=== PATIENT | female | born 1980 | race Caucasian/White ===

== ENCOUNTER 2017-04-14 09:20 | Emergency (ER) | payer BC ==
[2017-04-14 10:37] VITALS: BP 124/84
--- NOTE | 2017-04-14 10:44 | UC ---
Lower Extremity/Ankle HPI - HPI Summary HPI Summary: pt presents with c/o gradual onset of right foot pain, with feeling of tender "marble in the ball of my foot" X 1 week. Pt reports that she has begun to excercise more vigorously in the last month and denies any injury. - History of Current Complaint Chief Complaint: UCLowerExtremity Stated Complaint: RIGHT FOOT PAIN Time Seen by Provider: 04/14/17 10:05 Hx Obtained From: Patient Hx Last Menstrual Period: ~03/24/17 ?: No Onset/Duration: Gradual Onset, Lasting Weeks - 4 Severity Initially: Mild Severity Currently: Moderate - with ambualtion or weight bearing Aggravating Factor(s): Standing, Ambulation Alleviating Factor(s): Rest, Elevation Able to Bear Weight: Yes - Risk Factors Gout Risk Factors: Negative - Allergies/Home Medications Allergies/Adverse Reactions: Allergies Allergy/AdvReac Type Severity Reaction Status Date / Time Penicillins Allergy Unknown Verified 04/14/17 10:05 Reaction Details Home Medications: Home Medications Ibuprofen TAB* [Advil TAB*] 1,200 mg PO Q12H PRN 04/14/17 [History Confirmed 09/19] Rizatriptan ODT (NF) [Maxalt-SUCCESS COACH (NF)] 10 mg PO SEE INSTRUCTIONS PRN 04/14/17 [ History Confirmed 04/14/17] PMH/Surg Hx/FS Hx/Imm Hx Previously Healthy: Yes - Surgical History Surgical History: Yes Surgery Procedure, Year, and Place: Tubal Ligation, 2002, [place] - Family History Known Family History: Positive: Other - positive [facility] for myalgia - Social History Alcohol Use: Occasionally Substance Use Type: None Smoking Status (MU): Never Smoked Tobacco Review of Systems Constitutional: Negative Skin: Negative Eyes: Negative ENT: Negative Respiratory: Negative Cardiovascular: Negative Gastrointestinal: Negative Genitourinary: Negative Motor: Negative Neurovascular: Negative Musculoskeletal: Myalgia - right plantar aspect, "ball of foot" Neurological: Negative Psychological: Negative All Other Systems Reviewed And Are Negative: Yes Physical Exam Triage Information Reviewed: Yes Appearance: Well-Appearing Vital Signs: Initial Vital Signs Temp 98.7 F 04/14/17 10:02 Pulse 76 04/14/17 10:02 Resp 16 04/14/17 10:02 BP 124/84 04/14/17 10:02 Pulse Ox 99 07/12/17 10:02 Eye Exam: Normal Respiratory Exam: Normal Musculoskeletal Exam: Other - tenderness, right distal metatarsal between 3&4 with palpation Neurological Exam: Normal Psychological Exam: Normal Skin Exam: Normal Lower Extremity Course/Dx - Differential Dx/Diagnosis Differential Diagnosis/HQI/PQRI: Fracture (Closed), Gout, Other - louis neuroma Provider Diagnoses: louis neuroma Discharge - Discharge Plan Condition: Stable Disposition: HOME Patient Education Materials: Louis Neuroma (ED) Referrals: [facility] REFERRAL [Outside] Dony Hanks [Medical Doctor] - Additional Instructions: If you do not have an improvement in your symptoms, then we have provided the referral to a provider to help further evaluate your current complaint.
== END 2017-04-14 10:39 | disposition home or self-care (01) ==
LOC: UCCORT 09:20
DX: G57.61 Lesion of plantar nerve, right lower limb (principal)
CPT/HCPCS: 99201; G0463

== ENCOUNTER 2017-09-09 17:02 | Emergency (ER) | payer BC ==
[2017-09-09 17:15] VITALS: BP 132/87
--- NOTE | 2017-09-09 17:56 | RAD ---
Indication: Right foot pain. 3 views of the right foot demonstrates healing fractures of the midshaft of the fourth and fifth proximal phalanges. Metatarsals are intact. IMPRESSION: There appears to be healing fractures of the midshaft of the proximal phalanges of the third and fourth digits.
--- NOTE | 2017-09-09 18:16 | UC ---
Lower Extremity/Ankle HPI - HPI Summary HPI Summary: FOR TWO MONTHS FOLLOWING A FITNESS CHALLENGE HAS HAD WORSENING RIGHT (LATERAL) FOOT PAIN. NO SWELLING NO REDNESS. HURTS WITH WEIGHT BEARING. NO PREVIOUS KNOWN INJURY. - History of Current Complaint Chief Complaint: UCLowerExtremity Stated Complaint: FOOT PAIN Time Seen by Provider: 09/09/17 17:21 Hx Obtained From: Patient Hx Last Menstrual Period: 08/19/17 Onset/Duration: Gradual Onset, Lasting Weeks, Still Present Severity Initially: Mild Severity Currently: Moderate Aggravating Factor(s): Standing, Ambulation Alleviating Factor(s): Rest, Elevation Able to Bear Weight: Yes - WITH PROGRESSIVE PAIN - Risk Factors Gout Risk Factors: Negative DVT Risk Factors: Negative Septic Arthritis Risk Factor: Negative - Allergies/Home Medications Allergies/Adverse Reactions: Allergies Allergy/AdvReac Type Severity Reaction Status Date / Time Penicillins Allergy Unknown Verified 09/09/17 17:06 Reaction Details PMH/Surg Hx/FS Hx/Imm Hx Previously Healthy: Yes - Surgical History Surgical History: Yes Surgery Procedure, Year, and Place: Tubal Ligation, 2002, [place] - Family History Known Family History: Positive: Other - positive [facility] for myalgia - Social History Occupation: Employed Full-time Lives: With Family Alcohol Use: None Substance Use Type: None Smoking Status (MU): Never Smoked Tobacco Review of Systems Constitutional: Negative Skin: Negative Eyes: Negative ENT: Negative Respiratory: Negative Cardiovascular: Negative Gastrointestinal: Negative Genitourinary: Negative Motor: Negative Neurovascular: Negative Musculoskeletal: Arthralgia, Myalgia Neurological: Negative Psychological: Negative Is Patient Immunocompromised?: No All Other Systems Reviewed And Are Negative: Yes Physical Exam Triage Information Reviewed: Yes Appearance: Well-Appearing, No Pain Distress, Well-Nourished Vital Signs: Initial Vital Signs Temp 98.8 F 09/09/17 17:08 Pulse 76 09/09/17 17:08 Resp 18 09/09/17 17:08 BP 132/87 09/09/17 17:08 Pulse Ox 100 09/09/17 17:08 Vital Signs Reviewed: Yes Eye Exam: Normal ENT Exam: Normal ENT: Positive: Normal ENT inspection Dental Exam: Normal Neck exam: Normal Neck: Positive: Supple, Nontender Respiratory Exam: Normal Respiratory: Positive: Chest non-tender, Lungs clear, Normal breath sounds, No respiratory distress Cardiovascular Exam: Normal Cardiovascular: Positive: RRR, No Murmur, Pulses Normal Abdominal Exam: Normal Musculoskeletal Exam: Normal Musculoskeletal: Positive: Strength Intact, ROM Intact, No Edema, Other: - LATERAL RIGHT FOOT TENDERNESS AT PROXIMAL 4TH AND 5TH METATARSALS Neurological Exam: Normal Psychological Exam: Normal Skin Exam: Normal Diagnostics - Radiology No standard instances Xray Interpretation: Positive (See Comments) - Interpreted by radiologist, reviewed by MIKE. Interpretation :HEALING FRACTURES OF THE MIDSHAFT OF PROXIMAL PHALANGES OF 3RD AND 4TH DIGITS Lower Extremity Course/Dx - Differential Dx/Diagnosis Differential Diagnosis/HQI/PQRI: Fracture (Closed), Sprain, Strain, Tendonitis, Other - EXTENSOR COMPARTMENT TENDONITIS OF THE FOOT Provider Diagnoses: RIGHT FOOT SPRAIN; OLD HEALING FRACTURES OF PROXIMAL 3RD AND 4TH PHALANGES OF RIGHT FOOT. Discharge - Discharge Plan Condition: Stable Disposition: HOME Patient Education Materials: Foot Sprain (ED), Arthralgia (ED) Referrals: Amanda FORD,Syed Garcia [Primary Care Provider] - Vesta Sheppard MD [Medical Doctor] -
== END 2017-09-09 18:31 | disposition home or self-care (01) ==
LOC: UCEAST 17:02
DX: S93.601A Unspecified sprain of right foot, initial encounter (principal); S92.514A Nondisplaced fracture of proximal phalanx of right lesser toe(s), initial encounter for closed fracture; X58.XXXA Exposure to other specified factors, initial encounter; Y93.A9 Activity, other involving cardiorespiratory exercise; Y92.9 Unspecified place or not applicable; Z88.0 Allergy status to penicillin
CPT/HCPCS: 99202; G0463

== ENCOUNTER 2017-11-11 07:43 | Day surgery (SDC) | payer BC ==
[~2017-11-11 07:43] MED LIST: Buffered Lidocaine 0.9% SYRIN* 5 ML/SYR SYRINGE INTRADERM ONE; DiMENhydriNATE IV* 50 MG/ML VIAL IV PUSH PRN; Famotidine IV* 10 MG/ML 2 ML (20 mg) IV ONE; Morphine INJ* 2 MG/ML 1 ML CARPUJECT IV PRN; Naloxone* 0.4 MG/ML 1 ML VIAL IV PRN; PROCHLORPERAZINE INJ 5 MG/ML 2 ML VIAL IV PRN
[2017-11-11] MEDS ORDERED: Buffered Lidocaine 0.9% SYRIN* 5 ML/SYR SYRINGE ONE (07:54)
[2017-11-11] MEDS ORDERED: Famotidine IV* 10 MG/ML 2 ML (20 mg) ONE (07:54)
[2017-11-11] MEDS ORDERED: Clindamycin 900 MG IVPREMIX(* 900 MG/50 ML SDV IV ONE (07:54)
[2017-11-11] MEDS ORDERED: Midazolam* 1 MG/ML 10 ML VIAL (10 MG) ONE (08:20)
[2017-11-11] MEDS ORDERED: KETAMINE HCL* 50 MG/ML 10 ML VIAL ONE (08:20)
[2017-11-11] MEDS ORDERED: fentaNYL* 50 MCG/ML 2 ML VIAL (100 MCG VIAL) ONE ×2 (08:20→11:32)
[2017-11-11] MEDS ORDERED: Ondansetron INJ* 2 MG/ML VIAL ONE (09:59)
[2017-11-11] MEDS ORDERED: Propofol* 10 MG/ML 20 ML BTL IV PUSH ONE (09:59)
[2017-11-11] MEDS ORDERED: Lidocaine 2% PF * 5 ML VIAL ONE (09:59)
[2017-11-11] MEDS ORDERED: Ketorolac INJ* 30 MG/ML 1 ML VIAL ONE (09:59)
[2017-11-11] MEDS ORDERED: Dexamethasone IV* 4 MG/ML 1 ML (4 MG) ONE (09:59)
[2017-11-11] MEDS ORDERED: Bupivacaine 0.5% SDV PF* 10-30ML VIAL ONE (10:37)
--- NOTE | 2017-11-11 11:25 | OP ---
Operative Report - Blank - Operative Report Date of Operation: 11/11/17 Note: PATIENT: Gloria Cordero DATE OF : 1980 DATE OF SURGERY: 11/11/2017 SURGEON: Josef Godoy MD STRAIGHTENING PRESS OPERATOR HELPER: FLORA Moon, whos assistance was necessary for positioning, retraction, help with instrumentation, and closure. ANESTHESIOLOGIST: Marques Burdick MD PREOPERATIVE DIAGNOSIS: Right peroneal tenosynovitis and instability POSTOPERATIVE DIAGNOSIS: Right peroneal tenosynovitis and instability OPERATION: 1. Right peroneal tendon exploration with synovectomy of peroneal tendon sheath. 2. Right peroneal tendon stabilization procedure with fibular groove deepening osteotomy. ANESTHESIA: GETA IMPLANTS: none TOURNIQUET TIME: Less than 45 minutes with a well padded thigh tourniquet at 250mmHg SPECIMENS: none ESTIMATED BLOOD LOSS: minimal COMPLICATIONS: none STATUS: Stable from the operating room to the recovery room and then home. INDICATIONS FOR PROCEDURE: Gloria has had longstanding pain and instability of her right peroneal tendons. Both operative and non operative treatment alternatives were reviewed. Further, the nature and risks of surgery were reviewed in careful detail, in the office as well as the pre-operative holding area. Our discussions regarding the risks of surgery included, but were not limited to, infection, wound problems, nerve injury, neuroma, RSD, persistent symptoms, blood clot, failure of the surgery, recurrent instability and even the remote chance of catastrophic complication, including loss of limb. DESCRIPTION OF PROCEDURE: The patient was seen in the preoperative holding unit and informed written consent was obtained. The appropriate extremity was marked. The patient was then brought to the operating room and carefully positioned on the operating room table. Anesthesia was induced. All bony prominences were padded with great care. A chlorhexidine based pre-scrub was performed followed by a chloraprep prep and drape in standard sterile fashion. A surgical safety pause was then conducted in which we confirmed the appropriate patient, extremity, planned procedure, availability of equipment, indication and administration of prophylactic antibiotics, and DVT prophylaxis in the form of a compression boot on the non-surgical extremity. An Esmarch exsanguination of the limb was then performed and the tourniquet inflated. I utilized an incision overlying the peroneal tendons laterally. I carried the dissection down through the soft tissue to the level of the periosteum and superior peroneal retinaculum (SPR) with care taken to protect the sural nerve, which was not visualized during the procedure. I carefully incised the SPR off of the posterior fibula to expose the peroneal tendons. Dissection of the tendons was carried distally. The tendons were explored at this time for any tears. No discrete tears were appreciated but there was a large amount of inflamed tenosynovium within the tendon sheath. An extensive synovectomy was performed. Additionally, there was a low-lying peroneus brevis muscle belly which was debrided and excised. At this point, I carefully inspected the peroneal groove at the posterior aspect of the fibula. This was an abnormally shallow groove and I therefore elected to perform a groove deepening osteotomy procedure. I utilized a small sagittal saw to create a longitudinal osteotomy in the fibula at the margin of the insertion of the SPR. I then utilized a bone tamp and a mallet to impact this area, deepening the groove. I took care to ensure that there were no sharp bony prominences in this area. At this point I carefully planned out the repair of the superior peroneal retinaculum. I then reduced the tendons and they sat nicely in the deepened retro-fibular groove. The wound was copiously irrigated. I repaired the SPR utilizing #1 Vicryl suture in a transosseous horizontal mattress suture pattern. I utilized multiple sutures for this repair, appropriately tensioning the SPR. I was able to pass a [place] under the repaired SPR without difficulty after the repair. We then irrigated the wound copiously again. The wound was closed in a layered fashion utilizing 3-0 Monocryl and 3-0 nylon. A sterile dressing was then applied and the ankle was splinted in a neutral position. All needle and sponge counts were correct at the end of the case. The patient was awakened from anesthesia and transferred to the recovery room in stable condition. There were no complications. ATTESTATION: I attest I was present and scrubbed and performed the critical portions of the procedure myself. POST-OPERATIVE PLAN: The patient will remain [id number] for an anticipated duration of 6 weeks. Follow up will be in 2 weeks for likely suture removal and transition into a short leg cast.
[2017-11-11] MEDS: fentaNYL* 50 MCG/ML 2 ML VIAL (100 MCG VIAL) IV PRN ×3 (11:34→12:05)
[2017-11-11] MEDS ORDERED: oxyCODONE/Acetamin 5/325 MG* TAB ONE ×2 (11:37→12:14)
[2017-11-11] MEDS: oxyCODONE/Acetamin 5/325 MG* TAB PO PRN ×2 (11:39→12:16)
[2017-11-11] MEDS ORDERED: DiMENhydriNATE IV* 50 MG/ML VIAL ONE (12:34)
[2017-11-11 12:46] VITALS: BP 126/86
== END 2017-11-11 13:04 | disposition home or self-care (01) ==
LOC: OR 07:43
PROVIDERS: ATTEND Orthopaedic Surgery
DX: M76.71 Peroneal tendinitis, right leg (principal); M25.371 Other instability, right ankle
CPT/HCPCS: 81025; A9270-GY; C1776; J1100; J1240; J1885; J2250; J2405; J2704; J3010

== ENCOUNTER 2017-11-15 16:24 | Emergency (ER) | payer BC ==
--- OUTSIDE RECORDS SUMMARY | 2017-11-15 16:43 | XMS REPORT ---
:1980 External Reference #:[id number] Author [facility] [employer] Address [address] [address] Phone [phone] Care Team Providers Name Role Phone Syed Patel PA Primary Care Physician Unavailable Payers Type Date Identification Numbers Payment Provider Subscriber Commercial Policy Number: [id number] [employer] Gloria Cordero PayID: [id number] [address] [address] [place] [address] Problems Date Description Provider Status Onset: 09/13/2017 Stress fracture of metatarsal bone Josef Godoy MD Active Onset: 09/13/2017 Closed fracture of phalanx of foot Josef Godoy MD Active Onset: 10/11/2017 Strain of peroneal tendon Josef Godoy MD Active Social History Type Date Description Comments Smoking Patient has never smoked Allergies, Adverse Reactions, Alerts Date Description Reaction Status Severity Comments 09/13/2017 Penicillin active Medications Medication Date Status Form Strength Qnty SIG Indications Ordering Provider Knee Scooter 10/26/19 Active 1units Josef 18 MD Walt Rizatriptan Active Tablets 10mg prn Unknown Benzoate 00 No Injection Active Injection Josef 00 MD Walt Vital Signs Date Vital Result Comment 10/26/2017 Height 63 inches 5'3" Weight 165.00 lb BP Systolic 122 mmHg BP Diastolic 64 mmHg Respiratory Rate 16 /min Body Temperature 97.3 F Pain Level 6 BMI (Body Mass Index) 29.2 kg/m2 10/11/2017 Height 63 inches 5'3" Weight 165.00 lb Heart Rate 74 /min Respiratory Rate 16 /min Pain Level 7 BMI (Body Mass Index) 29.2 kg/m2 09/13/2017 Height 63 inches 5'3" Weight 165.00 lb Respiratory Rate 12 /min Body Temperature 97.9 F Pain Level 7 BMI (Body Mass Index) 29.2 kg/m2 Results Description No Information Procedures Description No Information Encounters Type Date Location Provider CPT E/M Dx Office Visit 10/11/2017 [place] [id number] S86.311D 2:45p [facility] S93.491D Office Visit 09/13/2017 3:00p [place] [address] M84.374A [facility] S92.514D Plan of Care 10/11/2017 - Josef Godoy [id number] Strain musc/tend peroneal grp at low leg lev, r leg, subsFollow up:Follow Up: after testing / imaging is [id number] Sprain of other ligament of right ankle, subs encntr
[2017-11-15 16:49] VITALS: BP 127/88
--- NOTE | 2017-11-15 17:50 | UC ---
Karen Bergeron Gabriel, scribed for Juvencio Grider MD on 11/15/17 at 1647 . Cardiac HPI - HPI Summary HPI Summary: This patient is a 37 year old F presenting to [place] accompanied by her family with a chief complaint of CP since 10-11-17 after her surgery. The patient rates the intermittent pain 8/10 in severity and located mid sternal. Patient reports pain on inspiration, trouble sleeping, waves of diaphoresis, and chills. Patient denies nausea and SOB. Patient had surgery in [place] to "scrap her bone and make room for her tendon." Pt takes ASA, ibuprofen, oxycodone, and Tylenol daily for pain. FHx of blood clots - History of Current Complaint Stated Complaint: CHEST PAIN Time Seen by Provider: 11/15/17 16:31 Hx Last Menstrual Period: 08/19/17 Onset/Duration: Lasting Days, Still Present Timing: Intermittent Episodes Lasting: Initial Severity: Severe Current Severity: Moderate Pain Intensity: 8 Chest Pain Location: Mid Sternal Associated Signs & Symptoms: Positive: Chest Pain, Diaphoresis. Negative: Nausea/Vomiting - Allergy/Home Medications Allergies/Adverse Reactions: Allergies Allergy/AdvReac Type Severity Reaction Status Date / Time Penicillins Allergy Unknown Verified 11/11/17 07:57 Reaction Details PMH/Surg Hx/FS Hx/Imm Hx Neurological History: Migraine Other History Of: Negative For: HIV, Hepatitis B - Surgical History Surgical History: Yes Surgery Procedure, Year, and Place: Tubal Ligation, 2002, [place]. FX'D NOSE - Family History Known Family History: Positive: Blood Disorder - blood clots, Other - positive [facility] for myalgia - Social History Alcohol Use: Rare Alcohol Amount: 1 X MONTH Substance Use Type: None Smoking Status (MU): Never Smoked Tobacco Review of Systems Constitutional: Chills, Other - waves of diaphoresis Cardiovascular: Chest Pain All Other Systems Reviewed And Are Negative: Yes Physical Exam Triage Information Reviewed: Yes Vital Signs: Initial Vital Signs Temp 98.7 F 11/15/17 16:36 Pulse 77 11/15/17 16:36 Resp 16 11/15/17 16:36 BP 127/88 11/15/17 16:36 Pulse Ox 99 11/15/17 16:36 Vital Signs Reviewed: Yes - Additional Comments General: well-appearing, mild pain distress Skin: warm, color reflects adequate perfusion, dry Head: normal Eyes: EOMI, ALEX ENT: normal Neck: supple, nontender Respiratory: CTA, breath sounds present Cardiovascular: RRR Abdomen: soft, nontender, Chest is non tender to palpation Bowel: present Musculoskeletal: normal, strength/ROM intact, RLE in cast, good capillary refill Neurological: normal, sensory/motor intact, A&O x3 Psychological: affect/mood appropriate Diagnostics - EKG Cardiac Rate: NL - Taken at 1632 Cardiac Rhythm: Sinus: Normal - at 76 BPM Ectopy: None ST Segment: Normal - Assessment/Plan Course Of Treatment: Medications reviewed. BP noted and advised to follow up with PCP. DISCUSSED DDX OF CHEST PAIN THE PATIENT AND HER SISTER WHICH INCLUDES PE. RECOMMENDED GOING TO THE ED FOR FURTHER EVALUATION. DISCUSSED GOING BY AMBULANCE. PATIENT DECLINED THE AMBULANCE, WILL GO BY POV. VSS IN CLINIC. SPOKE WITH CHARGE NURSE IN ED. - Clinical Impression Provider Diagnoses: CHEST PAIN. Elevated blood pressure without history of hypertension. Discharge - Discharge Plan Condition: Stable Disposition: HOME Patient Education Materials: Chest Pain (ED) Referrals: Amanda FORD,Syed Garcia [Primary Care Provider] - Additional Instructions: GO DIRECTLY TO THE EMERGENCY DEPARTMENT FOR FURTHER EVALUATION OF YOUR CHEST PAIN. Your blood pressure was elevated during todays visit; please follow up with your primary care provider within a week for further evaluation. The documentation as recorded by the Karen crespo Gabriel accurately reflects the service I personally performed and the decisions made by me, Juvencio Grider MD.
== END 2017-11-15 16:57 | disposition home or self-care (01) ==
LOC: UCEAST 16:24
DX: R07.89 Other chest pain (principal); R61 Generalized hyperhidrosis; R03.0 Elevated blood-pressure reading, without diagnosis of hypertension; G43.909 Migraine, unspecified, not intractable, without status migrainosus; Z88.0 Allergy status to penicillin
CPT/HCPCS: 93005; 99212; G0463

== ENCOUNTER 2017-11-15 17:20 | Emergency (ER) | payer BC ==
[2017-11-15] MEDS ORDERED: Morphine INJ* 4 MG/ML 1 ML CARPUJECT IV ONE (18:13)
[2017-11-15] MEDS ORDERED: Ondansetron INJ* 2 MG/ML VIAL IV ONE (18:13)
[2017-11-15 18:28] LABS: ABS Basophils 0.1 10^3/ul (0-0.2); ABS Eosinophils 0.1 10^3/ul (0-0.6); ABS Monocytes 0.7 10^3/ul (0-0.8); ABS Neutrophils 7.3 10^3/ul (1.5-7.7); ABS Nucleated RBC 0 10^3/ul; Eosinophil % 0.8 % (0-6); Hematocrit 41 % (35-47); Hemoglobin 14.1 g/dl (12.0-16.0); Lymphocyte % 19.7 % (25-47); Mean Corpuscular HGB Conc 35 g/dl (31-36); Mean Corpuscular Hemoglobin 31 pg (27-31); Mean Corpuscular Volume 89 fL (80-97); Mean Platelet Volume 8 um3 (7.4-10.4); Nucleated Red Blood Cells % 0; Platelet Count 280 10^3/ul (150-450); Red Blood Count 4.58 10^6/ul (4.0-5.4); Red Cell Distribution Width 13 % (10.5-15); White Blood Count 10.2 10^3/ul (3.5-10.8)
--- NOTE | 2017-11-15 18:28 | ED ---
HPI Chest Pain - HPI Summary HPI Summary: Patient is an otherwise healthy 37-year-old female who presents to the ED with midsternal chest pain which does not radiate, rated an 8 out of 10 and is intermittent. Recent surgery on her right lower extremity on , and she complains of chest pain with mild shortness of breath since that time. She denies any cardiac history, but endorses strong family history. Grandfather from [place] and father had multiple blood clots. She has never had a blood clot personally. Pain is not worse with exertion or better with rest. Pain is slightly worse with inspiration and expiration. Denies OCP use, smoking, known malignancy, calf pain. She denies nausea, vomiting, diarrhea, constipation. Denies headache. She was seen at urgent care with a normal EKG, but was still sent here to rule out blood clot. Denies history of shortness of breath including history of COPD or asthma. She does not feel like her heart is beating fast, is not diaphoretic, and denies any recent upper respiratory infection. - History of Current Complaint Chief Complaint: EDChestWallPain Time Seen by Provider: 11/15/17 17:50 Hx Obtained From: Patient Hx Last Menstrual Period: 08/19/17 Onset/Duration: Started Hours Ago Timing: Constant Initial Severity: Moderate Current Severity: Moderate Pain Intensity: 7 Pain Scale Used: 0-10 Numeric Chest Pain Location: Mid Sternal Chest Pain Radiates: No Character: Dull/Aching Aggravating Factor(s): Nothing Alleviating Factor(s): Nothing Associated Signs and Symptoms: Positive: Other: - Allergy/Home Medications Allergies/Adverse Reactions: Allergies Allergy/AdvReac Type Severity Reaction Status Date / Time Penicillins Allergy Unknown Verified 11/11/17 07:57 Reaction Details PMH/Surg Hx/FS Hx/Imm Hx Previously Healthy: Yes Endocrine/Hematology History: Denies: Hx Diabetes Cardiovascular History: Denies: Hx Hypertension, Hx Pacemaker/ICD History: Denies: Hx Renal Disease Musculoskeletal History: Reports: Hx Tendonitis - RIGHT KNEE, Other Musculoskeletal History - RIGHT ANKLE TENDON INJURY 07/20 Sensory History: Reports: Hx Contacts or Glasses - CONTACTS WILL WEAR GLASSES DOS Denies: Hx Hearing Aid Opthamlomology History: Reports: Hx Contacts or Glasses - CONTACTS WILL WEAR GLASSES DOS Neurological History: Reports: Hx Headaches, Hx Migraine - last episode on 11/03 usually has 4-5 attackes month Psychiatric History: Denies: Hx Panic Disorder - Surgical History Surgery Procedure, Year, and Place: Tubal Ligation, 2002, [place]. FX'D NOSE Hx Anesthesia Reactions: No - Immunization History Hx Pertussis Vaccination: No Immunizations Up to Date: Unable to Obtain/Confirm Infectious Disease History: No Infectious Disease History: Denies: Traveled Outside the [place] in Last 30 Days - Family History Known Family History: Positive: Other - positive [facility] for myalgia - Social History Occupation: Employed Full-time Alcohol Use: Rare Alcohol Amount: 1 X MONTH Hx Substance Use: No Substance Use Type: Reports: None, Prescribed Smoking Status (MU): Never Smoked Tobacco Review of Systems Constitutional: Negative Negative: Fever, Chills, Fatigue ENT: Negative Positive: Chest Pain Positive: Shortness Of Breath Gastrointestinal: Negative Positive: no symptoms reported, see HPI Musculoskeletal: Negative Skin: Negative All Other Systems Reviewed And Are Negative: Yes Physical Exam Triage Information Reviewed: Yes Vital Signs On Initial Exam: Initial Vitals Temp Pulse Resp BP Pulse Ox 97.7 F 89 16 139/99 97 11/15/17 17:23 11/15/17 17:23 11/15/17 17:23 11/15/17 17:23 11/15/17 17:23 Vital Signs Reviewed: Yes Appearance: Positive: Well-Appearing, Well-Nourished Skin: Positive: Warm, Skin Color Reflects Adequate Perfusion Head/Face: Positive: Normal Head/Face Inspection Eyes: Positive: EOMI, ALEX, Conjunctiva Clear Neck: Positive: Supple, No Lymphadenopathy Respiratory/Lung Sounds: Positive: Clear to Auscultation, Breath Sounds Present Cardiovascular: Positive: RRR, Pulses are Symmetrical in both Upper and Lower Extremities Musculoskeletal: Positive: Normal, Strength/ROM Intact Neurological: Positive: Sensory/Motor Intact, Alert, Oriented to Person Place, Time, Speech Normal Psychiatric: Positive: Normal, Affect/Mood Appropriate AVPU Assessment: Alert Diagnostics - Vital Signs Vital Signs Temp Pulse Resp BP Pulse Ox 11/15/17 17:53 128/98 11/15/17 17:23 97.7 F 89 16 139/99 97 - Laboratory Lab Statement: Any lab studies that have been ordered have been reviewed, and results considered in the medical decision making process. Chest Pain Course/Dx - Course Course Of Treatment: During the course of treatment, the patient is evaluated for mid sternal chest pain. Due to her recent surgery, CTA is ordered. Labs obtained. On arrival, she endorses an 8 out of 10 pain is is given Zofran and morphine for relief. Discharge - Discharge Plan Referrals: Amanda FORD,Syed Garcia [Primary Care Provider] -
[2017-11-15] MEDS ORDERED: Morphine INJ* 4 MG/ML 1 ML SYRINGE (NEW SYRINGE VERSION) ONE (18:30)
[2017-11-15] MEDS ORDERED: NS 0.9% 1000 ML* 1,000 ML IV ONE (18:31)
[2017-11-15 18:57] LABS: EGFR Non-African American 80.3 (>60)
[2017-11-15] MEDS ORDERED: Iohexol 350* (CONTRAST) 500 ML MDV IV ONE (19:54)
[2017-11-15 20:54] LABS: INR 0.94 (0.77-1.02)
--- NOTE | 2017-11-15 21:09 | RAD ---
INDICATION: Midsternal chest pain radiating to the left shoulder. COMPARISON: None TECHNIQUE: Axial source images were acquired following the administration of 67 mL Omnipaque [address] angiographic technique. Coronal and sagittal reconstructed images were constructed and reviewed. FINDINGS: There there are no filling defects in the pulmonary arteries to indicate acute pulmonary embolic disease. There are no focal infiltrates or effusions. There are no pulmonary parenchymal masses. The heart is normal in size. There is no evidence of pericardial effusion. There is no evidence of aortic aneurysm or dissection. The right lobe of the thyroid there is an 8 mm hypoattenuating focus that isn't completely characterized on this type of CT examination. At the right hilum there is a mildly enlarged lymph node measuring 1.3 cm x 1.3 cm (axial image 82). The visualized osseous structures appear normal. Limited views of the upper abdomen show no abnormalities. IMPRESSION: 1. No CT of evidence of pulmonary embolism. 2. At the right hilum there is a mildly enlarged lymph node measuring 1.3 x 1.3 cm in the axial plane of indeterminate clinical significance.
[2017-11-15] MEDS ORDERED: Ketorolac INJ* 30 MG/ML 1 ML VIAL IV PUSH ONE (21:15)
[2017-11-15] MEDS ORDERED: Methocarbamol TAB* 500 MG PO ONE (22:01)
--- NOTE | 2017-11-15 22:06 | PN ---
Progress Note - Progress Note Date of Service: 11/15/17 Note: patient was a sign out from [facility] pending CTA results. CTA: 1. No CT of evidence of pulmonary embolism. 2. At the right hilum there is a mildly enlarged lymph node measuring 1.3 x 1.3 cm in the axial plane of indeterminate clinical significance. labs, EKG and troponin otherwise unremarkable. Appears to be suffering from possible muscle strain spasm. Diagnosis: chest wall pain, muscle strain/spasm condition: stable discharge: home
[2017-11-15 22:43] VITALS: BP 130/86
== END 2017-11-15 22:43 | disposition home or self-care (01) ==
LOC: ED 17:20
DX: R07.9 Chest pain, unspecified (principal); R06.02 Shortness of breath
CPT/HCPCS: 36415; 71275; 80053; 82553; 83605; 83735; 84484; 84702; 85025; 85610; 85730; 93005; 96374; 96375; 99283; A9270-GY; J1885; J2270; J2405; Q9967

== ENCOUNTER 2019-02-05 12:52 | Emergency (ER) | payer BC ==
--- NOTE | 2019-02-05 14:05 | ED ---
Throat Pain/Nasal Congestion - HPI Summary HPI Summary: Pt. is a 38 y.o female who presents to the ER for redness and drainage from her left eye that started yesterday. Pt. notes she wears contacts and when she took her contacts out yesterday she noticed swelling to left cornea laterally. Pt. notes this morning she has dried drainage on her left eyelids. Denies eye pain, fever, sore throat, sinus congestion. No past medical hx. Sxs are mild in severity. No current modifying factors. - History of Current Complaint Chief Complaint: EDEyeProblem Time Seen by Provider: 02/05/19 14:01 Hx Obtained From: Patient - Allergies/Home Medications Allergies/Adverse Reactions: Allergies Allergy/AdvReac Type Severity Reaction Status Date / Time Penicillins Allergy Unknown Verified 02/05/19 12:55 Reaction Details PMH/Surg Hx/FS Hx/Imm Hx Previously Healthy: Yes Endocrine/Hematology History: Denies: Hx Diabetes Cardiovascular History: Denies: Hx Hypertension, Hx Pacemaker/ICD History: Denies: Hx Renal Disease Musculoskeletal History: Reports: Hx Tendonitis - RIGHT KNEE, Other Musculoskeletal History - RIGHT ANKLE TENDON INJURY 07/20 Sensory History: Reports: Hx Contacts or Glasses - CONTACTS WILL WEAR GLASSES DOS Denies: Hx Hearing Aid Opthamlomology History: Reports: Hx Contacts or Glasses - CONTACTS WILL WEAR GLASSES DOS Neurological History: Reports: Hx Headaches, Hx Migraine - last episode on 11/03 usually has 4-5 attackes month Psychiatric History: Denies: Hx Panic Disorder - Surgical History Surgery Procedure, Year, and Place: Tubal Ligation, 2002, [place]. FX'D NOSE. RIGHT FOOT 11/2017. C SECTION Hx Anesthesia Reactions: No Infectious Disease History: No Infectious Disease History: Denies: Traveled Outside the [place] in Last 30 Days - Family History Known Family History: Positive: Other - positive FM for myalgia, Non- Contributory - Social History Occupation: Employed Full-time Lives: With Family Alcohol Use: Rare Alcohol Amount: 1 X MONTH Hx Substance Use: No Substance Use Type: Reports: None, Prescribed Smoking Status (MU): Never Smoked Tobacco Review of Systems Constitutional: Negative Negative: Fever, Chills Positive: Drainage, Erythema ENT: Negative Negative: Sore Throat, Ear Ache Cardiovascular: Negative Respiratory: Negative Negative: Cough Skin: Negative Negative: Rash Neurological: Negative All Other Systems Reviewed And Are Negative: Yes Physical Exam Triage Information Reviewed: Yes Vital Signs On Initial Exam: Initial Vitals Temp Pulse Resp BP Pulse Ox 96 F 67 14 156/98 97 02/05/19 12:55 02/05/19 12:55 02/05/19 12:55 02/05/19 12:55 02/05/19 12:55 Vital Signs Reviewed: Yes Appearance: Positive: Well-Appearing - Pt. sitting on bed in NAD. Friend present. Skin: Positive: Warm, Dry Head/Face: Positive: Normal Head/Face Inspection Eyes: Positive: Normal, EOMI, Other: - Right eye unremarkable. Left eye with erythema to the lateral aspect. No drainage. No surrouding periorbital erythema or edema. EOMI without pain ENT: Positive: Pharynx normal, TMs normal Neck: Positive: Supple, Nontender, No Lymphadenopathy. Negative: Nuchal Rigidity Respiratory/Lung Sounds: Positive: Clear to Auscultation, Breath Sounds Present Cardiovascular: Positive: Normal, RRR Neurological: Positive: Normal, Alert, Oriented to Person Place, Time Psychiatric: Positive: Affect/Mood Appropriate Diagnostics - Vital Signs Vital Signs Temp Pulse Resp BP Pulse Ox 02/05/19 12:55 96 F 67 14 156/98 97 - Laboratory Lab Statement: Any lab studies that have been ordered have been reviewed, and results considered in the medical decision making process. EENT Course/Dx - Differential Diagnoses Differential Diagnoses: Cellulitis, Conjunctivitis, Corneal Abrasion - Diagnoses Provider Diagnoses: Conjunctivitis Discharge - Sign-Out/Discharge Documenting (check all that apply): Patient Departure Patient Received Moderate/Deep Sedation with Procedure: No - Discharge Plan Condition: Good Disposition: HOME Prescriptions: Ciprofloxacin 0.3% OPTH.SUZE* [Cipro 0.3% Opth*] 2 drop LEFT EYE Q2H #1 btl Patient Education Materials: Conjunctivitis (ED) Referrals: Amanda FORD,Syed Garcia [Primary Care Provider] - Stevo Pace MD [Medical Doctor] - Additional Instructions: Schedule a follow up appointment with your eye doctor for recheck in 2-3 days Use drops as directed Try an over the counter allergy eye drop such as Opcon-A as directed Do not wear contacts until symptoms resolve Return to ER if symptoms change or worsen - Billing Disposition and Condition Condition: GOOD Disposition: Home
[2019-02-05] MEDS ORDERED: Fluorescein Sodium TOPICAL* 1 MG TEST STRIP OPHTHALMIC ONE (14:14)
[2019-02-05 15:19] VITALS: BP 142/70
== END 2019-02-05 15:10 | disposition home or self-care (01) ==
LOC: ED 12:52
DX: H10.9 Unspecified conjunctivitis (principal)
CPT/HCPCS: 99282; A9270-GY

== ENCOUNTER 2019-04-14 13:12 | Emergency (ER) | payer BC ==
[2019-04-14 13:20] VITALS: BP 121/81
--- NOTE | 2019-04-14 13:32 | UC ---
Lower Extremity/Ankle HPI - HPI Summary HPI Summary: 38-year-old female who had surgery on her right foot in November 2017. She's had chronic pain since then however was released from her orthopedist, Dr. Marte. She states over the past few weeks she started new exercise program and she's had increased pain and she would like x-rays because last time this happened she had some broken bones in her foot. - History of Current Complaint Chief Complaint: UCLowerExtremity Stated Complaint: FOOT PAIN Time Seen by Provider: 04/14/19 13:22 Hx Obtained From: Patient Hx Last Menstrual Period: 08/19/17 ?: No Onset/Duration: Gradual Onset - Worsening over the past 2-3 weeks. Severity Initially: Mild Severity Currently: Mild Pain Intensity: 7 Aggravating Factor(s): Other - Exercising Alleviating Factor(s): Rest Able to Bear Weight: Yes - Allergies/Home Medications Allergies/Adverse Reactions: Allergies Allergy/AdvReac Type Severity Reaction Status Date / Time Penicillins Allergy Unknown Verified 04/14/19 13:20 Reaction Details PMH/Surg Hx/FS Hx/Imm Hx Previously Healthy: Yes - Surgical History Surgical History: Yes Surgery Procedure, Year, and Place: Tubal Ligation, 2002, [place]. FX'D NOSE. RIGHT FOOT 11/2017. C SECTION - Family History Known Family History: Positive: Other - positive FMh for myalgia, Non- Contributory - Social History Lives: With Family Alcohol Use: Rare Alcohol Amount: 1 X MONTH Substance Use Type: None Smoking Status (MU): Never Smoked Tobacco Review of Systems All Other Systems Reviewed And Are Negative: Yes Musculoskeletal: Positive: Other: - Mostly complains of pain along the lateral dorsum of her right foot. She has had foot surgery one year ago. Is Patient Immunocompromised?: No Physical Exam Triage Information Reviewed: Yes Appearance: Well-Appearing, No Pain Distress, Well-Nourished Vital Signs: Initial Vital Signs Temp 97.5 F 04/14/19 13:16 Pulse 66 04/14/19 13:16 Resp 18 04/14/19 13:16 BP 121/81 04/14/19 13:16 Pulse Ox 99 04/14/19 13:16 Vital Signs Reviewed: Yes Musculoskeletal: Positive: Strength Intact, ROM Intact, No Edema - Good peripheral pulses neuro sensation capillary refill, no erythema, deformity or swelling. Achilles is intact. No pain on palpation to the lateral dorsum of her right foot. Neurological: Positive: Alert, Muscle Tone Normal Skin Exam: Normal Lower Extremity Course/Dx - Course Course Of Treatment: Right foot x-ray:BONE DENSITY: Normal. BONES: There is no displaced fracture. There is plantar calcaneal enthesophytes. There has been interval remodeling with a relative decrease in the degree of periosteal reaction along the proximal phalanges of the third and fourth digits. JOINTS: There is mild osteoarthritis of the first MTP joint. ALIGNMENT: There is no dislocation. SOFT TISSUES: Unremarkable. OTHER FINDINGS: None. IMPRESSION: NO ACUTE OSSEOUS INJURY. IF SYMPTOMS PERSIST, RECOMMEND REPEAT IMAGING. - Differential Dx/Diagnosis Provider Diagnosis: Chronic toe pain, right foot Discharge - Sign-Out/Discharge Documenting (check all that apply): Patient Departure All imaging exams completed and their final reports reviewed: Yes - Discharge Plan Condition: Fair Disposition: HOME Patient Education Materials: Arthralgia (ED) Referrals: Josef Godoy MD [Medical Doctor] - Syed Patel PA [Primary Care Provider] - Additional Instructions: Follow-up with your primary care provider or orthopedist if continued pain or worsening pain. - Billing Disposition and Condition Condition: FAIR Disposition: Home
== END 2019-04-14 14:28 | disposition home or self-care (01) ==
LOC: UCEAST 13:12
DX: G89.29 Other chronic pain (principal); M79.671 Pain in right foot; M79.674 Pain in right toe(s); Z88.0 Allergy status to penicillin
CPT/HCPCS: 99211; G0463